=== PATIENT | female | born 2000 | race Caucasian/White ===

== ENCOUNTER 2018-03-21 10:19 | Emergency (ER) | payer BC ==
[2018-03-21] MEDS ORDERED: ONDANSETRON HCL IV 4 MG/2 ML VIAL IV ONE (10:35)
[2018-03-21] MEDS ORDERED: SODIUM CHLORIDE 0.9% 500 ML IV ONE (10:35)
--- NOTE | 2018-03-21 10:39 | Emergency Department Record ---
History of Present Illness - General Chief Complaint: Abdominal Pain Stated Complaint: ABD PAIN Time Seen by Provider: 03/21/18 10:28 Source: Patient Mode of Arrival: Ambulatory Limitations: No limitations - History of Present Illness Initial Comments: The patient is here due to waking up 6 hours ago with stomach cramping and loose stools. The symptoms have been coming and going and now are associated with intermittent tenesmus. The patient has tried to have a BM due to the feeling of needing to go and has had a few drops of blood in the bowl. There was mild nausea earlier but none now. The patient denies any fever, chills, back pain, dysuria, vaginal discharge, bleeing, or any recent travel or bad food exposure. MD Complaint: Abdominal pain Onset/Timin -: Hour(s) Location: Diffuse Radiation: None Migration to: No migration Severity scale (1-10): 3 Quality: Dull, Sharp Consistency: Constant, Intermittent Improves With: Nothing Worsens With: Nothing Associated Symptoms: Diarrhea - Related Data LMP (females 10-50): Last week Patient : No Home Medications Medication Instructions Recorded Confirmed Last Taken Control 03/21/18 Unknown Previous Rx's Medication Instructions Recorded Ciprofloxacin HCl [Cipro] 500 mg PO Q12HR #6 tablet 03/21/18 Dicyclomine HCl [Bentyl] 10 mg PO Q8H #12 cap 03/21/18 Ondansetron [Zofran Odt] 4 mg SL .Q4-6H PRN #12 tab.rapdis 03/21/18 Allergies Allergy/AdvReac Type Severity Reaction Status Date / Time nickel Allergy HIVES Verified 03/21/18 10:27 Penicillins Allergy HIVES Verified 03/21/18 10:27 Travel Screening - Travel/Exposure Within Last 30 Days Have you traveled within the last 30 days?: No Review of Systems Constitutional: Denies: Chills, Fever Eyes: Denies: Eye discharge ENT: Denies: Congestion Respiratory: Denies: Cough, Dyspnea Cardiovascular: Denies: Arrhythmia Endocrine: Denies: Fatigue Gastrointestinal: Reports: Abdominal pain, Diarrhea, Nausea. Denies: Vomiting Genitourinary: Denies: Dysuria Musculoskeletal: Denies: Arthralgia Skin: Denies: Bruising Past Medical History - SOCIAL HISTORY Smoking Status: Never smoker Alcohol Use: None Drug Use: None - RESPIRATORY Hx Respiratory Disorders: No - CARDIOVASCULAR Hx Cardio Disorders: No - NEURO Hx Neuro Disorders: No - GI Hx GI Disorders: No - Hx Genitourinary Disorders: No - ENDOCRINE Hx Endocrine Disorders: No - MUSCULOSKELETAL Hx Musculoskeletal Disorders: No - PSYCH Hx Psych Problems: No - HEMATOLOGY/ONCOLOGY Hx Hematology/Oncology Disorders: No Family Medical History Any Significant Family History?: No Physical Exam - General General Appearance: Alert, Oriented x3, Cooperative, No acute distress - Head Head exam: Atraumatic, Normocephalic, Normal inspection - Eye Eye exam: Normal appearance, PERRL, EOMI - Neck Neck exam: Normal inspection, Full ROM. negative: Tenderness - Respiratory Respiratory exam: Normal lung sounds bilaterally. negative: Respiratory distress - Cardiovascular Cardiovascular Exam: Regular rate, Normal rhythm, Normal heart sounds - GI/Abdominal GI/Abdominal exam: Soft, Normal bowel sounds. negative: Distended, Rebound, Rigid, Tenderness - Extremities Extremities exam: Normal inspection, Full ROM, Normal capillary refill. negative: Tenderness - Back Back exam: Reports: Normal inspection - Neurological Neurological exam: Alert, Normal gait. negative: Abnormal gait, Motor sensory deficit - Psychiatric Psychiatric exam: negative: Anxious Course Vital Signs 03/21/18 10:29 Temperature 98.9 F Pulse Rate [ 83 Pulse Ox Probe] Respiratory 20 Rate Blood Pressure 127/72 [Left Arm] Pulse Ox 100 - Reevaluation(s) Reevaluation #1: The patient is doing very well at this time. She states her pain is much improved and she has been unable to produce a stool specimen for us. On exam her abdomen is very soft and nontender in all 4 quads. I explained to her that due to the very minimal blood in the mucus that she was producing we will treat her with a short course of an oral Abx along with the Bentyl and Zofran. She is to F/U with her PCP early next week for recheck and to return to the ER for any worsening symptoms. 03/21/18 12:15 Medical Decision Making - Data Complexity MDM Data: Labs Ordered and/or Reviewed - Lab Data Result diagrams: 03/21/18 10:40 03/21/18 10:40 Disposition Disposition: Discharge Clinical Impression: Diarrhea Qualifiers: Diarrhea type: unspecified type Qualified Code(s): R19.7 - Diarrhea, unspecified Disposition: Home, Self-Care Condition: (2) Stable Instructions: Acute Diarrhea (ED) Additional Instructions: Please drink plenty of fluids and take the Cipro as directed along with the Zofran and Bentyl. Please see your family doctor for recheck early next week and return to the ER for any worsening symptoms of any pain, fever, or bleeding. Prescriptions: Ciprofloxacin HCl [Cipro] 500 mg PO Q12HR #6 tablet Dicyclomine HCl [Bentyl] 10 mg PO Q8H #12 cap Ondansetron [Zofran Odt] 4 mg SL .Q4-6H PRN #12 tab.rapdis PRN Reason: Nausea Forms: Patient Portal Access Time of Disposition: 12:20 Quality - Quality Measures Quality Measures: N/A - Blood Pressure Screening View Details: Yes Does Patient Have Any of the Following: No Blood Pressure Classification: Normal BP Reading Systolic Measurement: 110 Diastolic Measurement: 69 Screening for High Blood Pressure: < Normal BP, F/U Not Required > [[id number]]
[2018-03-21 10:51] LABS: BASO % 0.1 % (0-6); EOS % 0.1 % (0-6); GRAN % 71.4 % (47-80); HEMATOCRIT 40.1 % (35.0-47.0); HEMOGLOBIN 13.3 gm/dl (11.6-16.0); LYMPH % 23.3 % (16-45); MEAN CELL VOLUME 96.9 fl (81-97); MEAN CORPUSCULAR HEMOGLOBIN 32.1 pg (27-33); MEAN CORPUSCULAR HGB CONC 33.2 g/dl (32-36); MEAN PLATELET VOLUME 10.2 fl (7.4-10.4); MONO % 5.1 % (0-9); PLATELET COUNT 266 K/uL (130-400); RED BLOOD COUNT 4.14 M/uL (3.80-5.40); RED CELL DISTRIBUTION WIDTH 11.9 % (11.5-14.5); WHITE BLOOD COUNT W/O DIFF 6.7 K/uL (4.2-12.2)
[2018-03-21 10:54] LABS: URINE APPEARANCE CLEAR; URINE BILIRUBIN NEGATIVE (NEGATIVE); URINE BLOOD NEGATIVE (NEGATIVE); URINE COLOR YELLOW; URINE GLUCOSE (UA) NEGATIVE (NEGATIVE); URINE KETONE NEGATIVE (NEGATIVE); URINE LEUKOCYTE ESTERASE NEGATIVE (NEGATIVE); URINE NITRITE NEGATIVE (NEGATIVE); URINE PROTEIN NEGATIVE (NEGATIVE); URINE UROBILINOGEN 0.2 E.U./dL (0.20 - 1.00)
[2018-03-21 11:11] LABS: BLOOD UREA NITROGEN 11 mg/dL (6-20); CREATININE 0.6 mg/dL (0.5-0.9); EST GLOMERULAR FILTRATION RATE > 60 mL/min
[2018-03-21 11:12] LABS: TOTAL PROTEIN 7.3 g/dL (6.6-8.7)
[2018-03-21 11:14] LABS: GLUCOSE,RANDOM 92 mg/dL (74-109)
[2018-03-21 11:17] LABS: ALBUMIN 4.3 g/dL (4.0-5.0); ALKALINE PHOSPHATASE 46 U/L (35-104); ALT/SGPT 20 U/L (<33); AST/SGOT 22 U/L (10.0-35.0); BILIRUBIN,DIRECT < 0.2 mg/dL (0-0.3); LIPASE 39 U/L (13-60)
[2018-03-21 11:34] LABS: HCG,QUALITATIVE URINE NEGATIVE (NEGATIVE)
== END 2018-03-21 12:28 | disposition home or self-care (01) ==
LOC: ER 10:19
DX: R19.7 Diarrhea, unspecified (principal); R11.0 Nausea; R10.9 Unspecified abdominal pain
CPT/HCPCS: 80048; 80076; 81003; 81025; 83690; 85025; 96360; 99284